=== PATIENT | female | born 2000 ===

== ENCOUNTER 2019-09-21 14:28 | Emergency (ER) | payer OTHER ==
[2019-09-21 19:41] VITALS: BP 132/75
--- NOTE | 2019-09-21 19:58 | UC ---
Lower Extremity/Ankle HPI - HPI Summary HPI Summary: right foot pain top lateral aspect between 4/5 MT---no specific injury began last night after she was out walking (in sneakers) - History of Current Complaint Chief Complaint: UCLowerExtremity Stated Complaint: RIGHT FOOT PAIN Time Seen by Provider: 09/21/19 19:39 Hx Obtained From: Patient Hx Last Menstrual Period: 09/19/2019 ?: No Onset/Duration: Sudden Onset, Lasting Days - 1, Still Present Pain Intensity: 5 Pain Scale Used: 0-10 Numeric Aggravating Factor(s): Standing, Ambulation Alleviating Factor(s): Rest, Elevation Able to Bear Weight: Yes - with pain - Allergies/Home Medications Allergies/Adverse Reactions: Allergies Allergy/AdvReac Type Severity Reaction Status Date / Time No Known Allergies Allergy Verified 09/21/19 19:41 Home Medications: Home Medications Naproxen Sodium [Aleve] 220 mg 09/21/19 [History] Sertraline HCl [Zoloft] 25 mg 09/21/19 [History] PMH/Surg Hx/FS Hx/Imm Hx Previously Healthy: Yes - Surgical History Surgical History: None - Family History Known Family History: Positive: None - Social History Occupation: Student Lives: Dormitory/Roommates Alcohol Use: Weekly Substance Use Type: None Smoking Status (MU): Never Smoked Tobacco Review of Systems All Other Systems Reviewed And Are Negative: Yes Constitutional: Positive: Negative Skin: Positive: Negative Eyes: Positive: Negative ENT: Positive: Negative Respiratory: Positive: Negative Cardiovascular: Positive: Negative Gastrointestinal: Positive: Negative Genitourinary: Positive: Negative Motor: Positive: Negative Neurovascular: Positive: Negative Musculoskeletal: Positive: Arthralgia - right lateral foot pain between 4/5 MT Neurological/Mental Status: Positive: Negative Psychological: Positive: Negative Is Patient Immunocompromised?: No Physical Exam Triage Information Reviewed: Yes Appearance: Well-Appearing, No Pain Distress, Well-Nourished Vital Signs: Initial Vital Signs Temp 97.7 F 09/21/19 19:36 Pulse 80 09/21/19 19:36 Resp 16 09/21/19 19:36 BP 132/75 09/21/19 19:36 Pulse Ox 99 09/21/19 19:36 Vital Signs Reviewed: Yes Eye Exam: Normal Eyes: Positive: Conjunctiva Clear ENT Exam: Normal ENT: Positive: Normal ENT inspection, Hearing grossly normal. Negative: Trismus , Muffled voice, Hoarse voice Dental Exam: Normal Neck exam: Normal Neck: Positive: Supple, Nontender, No Lymphadenopathy Respiratory Exam: Normal Respiratory: Positive: Chest non-tender, No respiratory distress, No accessory muscle use Cardiovascular Exam: Normal Cardiovascular: Positive: RRR, Pulses Normal, Brisk Capillary Refill Musculoskeletal Exam: Normal Musculoskeletal: Positive: Strength Intact, ROM Intact, No Edema Neurological Exam: Normal Neurological: Positive: Alert, Muscle Tone Normal Psychological Exam: Normal Skin Exam: Normal Diagnostics - Radiology No standard instances Radiology Interpretation Completed By: ED Physician - no evidence for fracture Lower Extremity Course/Dx - Course Course Of Treatment: jesús wrap, post op shoe crutches, ibuprofen rice follow with ortho if not resolved in 4-5 days, rice ibu for pain - Differential Dx/Diagnosis Provider Diagnosis: Pain in right foot Discharge ED - Sign-Out/Discharge Documenting (check all that apply): Patient Departure All imaging exams completed and their final reports reviewed: No - Discharge Plan Condition: Stable Disposition: HOME Patient Education Materials: Ibuprofen (By mouth), Crutch Instructions (ED), Foot Contusion (ED), R.I.C.E. Treatment (ED) Referrals: Reilly Coto MD [Medical Doctor] - 5 Days - Billing Disposition and Condition Condition: STABLE Disposition: Home
== END 2019-09-21 21:00 | disposition home or self-care (01) ==
LOC: UCEAST 14:28
DX: M79.671 Pain in right foot (principal)
CPT/HCPCS: 99202; G0463